=== PATIENT | female | born 1945 | race Hispanic/Latino ===

== ENCOUNTER 2019-03-11 13:10 | Emergency (ER) | payer MEDICARE ==
[~2019-03-11] VITALS: Ht 160 cm; Wt 102.1 kg
[2019-03-11 14:18] VITALS: BP 139/72
== END 2019-03-11 14:19 | disposition home or self-care (01) ==
LOC: FSED 13:10
DX: R50.9 Fever, unspecified (principal); J11.1 Influenza due to unidentified influenza virus with other respiratory manifestations; J40 Bronchitis, not specified as acute or chronic; J31.0 Chronic rhinitis
CPT/HCPCS: 80048; 85025; 87400; 99283

== ENCOUNTER 2022-07-19 02:26 | Observation (INO) | payer MEDICARE ==
[~2022-07-19] VITALS: Ht 160 cm; Wt 99.8 kg
[2022-07-19] MEDS ORDERED: SODIUM CHLORIDE FLUSH 10 ML SYR IV PRN (02:45)
[2022-07-19 03:14] LABS: BASOPHILS % 0.4 % (0.0-1.0); EOSINOPHILS # (AUTO) 0.2 (0.0-0.4); EOSINOPHILS % 3.1 % (0.0-6.0); HEMATOCRIT 40.8 % (34.2-44.1); HEMOGLOBIN 11.7 g/dL (12.0-16.0); LYMPHOCYTES # (AUTO) 2.5 (1.0-3.2); LYMPHOCYTES % 35.4 % (18.0-39.1); MEAN CORPUSCULAR HEMOGLOBIN 23.3 pg (28-32); MEAN CORPUSCULAR HGB CONC 28.7 g/dL (31-35); MEAN CORPUSCULAR VOLUME 81.1 fL (81-99); MONOCYTES # (AUTO) 0.5 (0.2-0.8); MONOCYTES % 6.6 % (4.4-11.3); NEUTROPHILS # (AUTO) 3.9 (2.1-6.9); NEUTROPHILS % 54.4 % (38.7-80.0); PLATELET COUNT 236 x10e3/uL (140-360); RED BLOOD COUNT 5.03 x10e6/uL (3.6-5.1); RED CELL DISTRIBUTION WIDTH 19.8 % (11.7-14.4)
[2022-07-19 03:29] LABS: ALBUMIN 3.6 g/dL (3.5-5.0); ANION GAP 13.9 mmol/L (8-16); CALCIUM 9.4 mg/dL (8.4-10.2); CREATININE, SERUM 0.75 mg/dL (0.57-1.11); POTASSIUM 3.9 mmol/L (3.5-5.1)
[2022-07-19] MEDS ORDERED: ASPIRIN 81 MG CHEW TAB PO ONE ×2 (05:00)
[2022-07-19] MEDS ORDERED: FUROSEMIDE INJ 10 MG/ML 4 ML VIAL IV ONE (05:30)
[2022-07-19] MEDS: ASPIRIN 81 MG ENTERIC COATED PO SCH (08:40)
[2022-07-19 10:24] LABS: CREATINE KINASE 49 IU/L (29-168)
[2022-07-19 14:55] VITALS: BP 115/71
[2022-07-19 16:59] VITALS: BP 115/71
[2022-07-19 20:00] VITALS: BP 134/79
[2022-07-19 22:20] VITALS: BP 134/79
[2022-07-19] MEDS: FUROSEMIDE INJ 10 MG/ML 4 ML VIAL IV SCH (22:20)
[2022-07-20] VITALS (7 sets, daily range): BP systolic 100–150; BP diastolic 46–90
[2022-07-20 06:17] LABS: BASOPHILS % 0.5 % (0.0-1.0); EOSINOPHILS # (AUTO) 0.1 (0.0-0.4); EOSINOPHILS % 2.2 % (0.0-6.0); HEMATOCRIT 39.1 % (34.2-44.1); LYMPHOCYTES # (AUTO) 2.3 (1.0-3.2); LYMPHOCYTES % 36.2 % (18.0-39.1); MEAN CORPUSCULAR HEMOGLOBIN 23.5 pg (28-32); MEAN CORPUSCULAR HGB CONC 30.7 g/dL (31-35); MEAN CORPUSCULAR VOLUME 76.5 fL (81-99); MONOCYTES # (AUTO) 0.4 (0.2-0.8); MONOCYTES % 6.6 % (4.4-11.3); NEUTROPHILS # (AUTO) 3.5 (2.1-6.9); NEUTROPHILS % 54.2 % (38.7-80.0); PLATELET COUNT 231 x10e3/uL (140-360); RED BLOOD COUNT 5.11 x10e6/uL (3.6-5.1); RED CELL DISTRIBUTION WIDTH 19.7 % (11.7-14.4)
[2022-07-20 06:55] LABS: ALBUMIN 3.6 g/dL (3.5-5.0); ANION GAP 14.2 mmol/L (8-16); CALCIUM 9.2 mg/dL (8.4-10.2); CREATINE KINASE 62 IU/L (29-168); CREATININE, SERUM 0.85 mg/dL (0.57-1.11); POTASSIUM 3.2 mmol/L (3.5-5.1)
[2022-07-20 09:10] LABS: ANISOCYTOSIS SLIGHT; PLATELET ESTIMATE ADEQUATE; PLATELET MORPHOLOGY COMMENT NORMAL; RBC MORPHOLOGY COMMENT NORMAL
[2022-07-20 09:11] LABS: POIKILOCYTOSIS SLIGHT
[2022-07-20] MEDS: ASPIRIN 81 MG ENTERIC COATED PO SCH (10:26)
[2022-07-20] MEDS ORDERED: ENTRESTO 24 MG1 EACH PO (10:34)
[2022-07-20] MEDS ORDERED: PAROXETINE HCL20 MG PO (10:34)
[2022-07-20] MEDS ORDERED: BENZONATATE100 MG PO (10:34)
[2022-07-20] MEDS ORDERED: METOPROLOL TART25 MG PO (10:34)
[2022-07-20] MEDS: FUROSEMIDE INJ 10 MG/ML 4 ML VIAL IV SCH (10:57)
[2022-07-20] MEDS ORDERED: POTASSIUM CHLORIDE 20 MEQ TAB CR PO ONE (13:15)
[2022-07-20] MEDS ORDERED: ASPIRIN EC81 MG PO (16:24)
[2022-07-20] MEDS ORDERED: LASIX40 MG PO (16:24)
[2022-07-20] MEDS ORDERED: FUROSEMIDE 40 MG TAB PO SCH (21:00)
== END 2022-07-20 18:29 | disposition home or self-care (01) ==
LOC: ER 02:35 → ERHOLD 04:48 → MED/SURG3 14:02
PROVIDERS: ADMIT Internal Medicine; ATTEND Internal Medicine
DX: I11.0 Hypertensive heart disease with heart failure (principal); I50.23 Acute on chronic systolic (congestive) heart failure; E78.5 Hyperlipidemia, unspecified; E66.9 Obesity, unspecified; Z68.39 Body mass index [BMI] 39.0-39.9, adult; D64.9 Anemia, unspecified; Z90.49 Acquired absence of other specified parts of digestive tract; M25.562 Pain in left knee; Z20.822 Contact with and (suspected) exposure to COVID-19
CPT/HCPCS: 36415 ×2; 71045; 71046; 80053 ×2; 82550 ×2; 82553 ×2; 83735; 83880; 84100; 84484 ×2; 85025 ×2; 93005 ×2; 94760; 99284; G0378 ×2; J1940 ×2; U0002